=== PATIENT | female | born 1990 | race Caucasian/White ===

== ENCOUNTER 2017-08-15 14:32 | Emergency (ER) | payer SELFPAY ==
[2017-08-15 14:39] VITALS: BP 152/89
--- NOTE | 2017-08-15 15:52 | ER Document Report ---
HPI - HPI Pain Level: 2 Notes: Patient is a 27-year-old female presents ED complaining of a possible bacterial infection to the left side of her face 1-1/2 weeks. Patient states that she has not been placing any creams on her face, but has been using face wash with minimal relief. Patient has noticed crusting to the lesions without any obvious abscess or purulent discharge. She has not noticed any streaks. Patient still eating and drink without difficulties. Denies any other recent illness. Patient admits to smoking but denies IV drug use. No other concerns or complaints. Denies any headache, fever, head injury, neck pain, URI, sore throat, chest pain, palpitations, syncope, cough, shortness of breath, wheeze, dyspnea, abdominal pain, nausea/vomiting/diarrhea, urinary retention, dysuria, hematuria. + history of impetigo in the past and she believes she has another infection of impetigo. No other significant medical history. - ROS Notes: REVIEW OF SYSTEMS: CONSTITUTIONAL : Denies fever, chills, or sweats. Denies recent illness. EENT: Denies eye, ear, throat, or mouth pain or symptoms. Denies nasal or sinus congestion or discharge. Denies throat, tongue, or mouth swelling or difficulty swallowing. CARDIOVASCULAR: Denies chest pain. Denies palpitations or racing or irregular heart beat. Denies ankle edema. RESPIRATORY: Denies cough, cold, or chest congestion. Denies shortness of breath, difficulty breathing, or wheezing. GASTROINTESTINAL: Denies abdominal pain or distention. Denies nausea, vomiting , or diarrhea. GENITOURINARY: Denies difficulty urinating, painful urination, burning, frequency, blood in urine, or discharge. MUSCULOSKELETAL: Denies back or neck pain or stiffness. Denies joint pain or swelling. SKIN: see hpi NEUROLOGICAL: Denies confusion or altered mental status. Denies passing out or loss of consciousness. Denies dizziness or lightheadedness. Denies headache. Denies weakness or paralysis or loss of use of either side. Denies problems with gait or speech. Denies sensory loss, numbness, or tingling. ALL OTHER SYSTEMS REVIEWED AND NEGATIVE. Dictation was performed using [employer] voice recognition software Past Medical History - Social History Smoking Status: Current Some Day Smoker Family History: Reviewed & Not Pertinent Vertical Provider Document - CONSTITUTIONAL Agree With Documented VS: Yes Notes: PHYSICAL EXAMINATION: GENERAL: Well-appearing, well-nourished and in no acute distress. A&Ox4 HEAD: Atraumatic, normocephalic. EYES: Pupils equal round and reactive to light, extraocular movements intact, sclera anicteric, conjunctiva are normal. ENT: EAC clear b/l. TM's intact b/l without erythema, fluid, or perforation. Nares patent and without discharge. oropharynx clear without exudates. No tonsilar hypertrophy or erythema. Moist mucous membranes. No sinus tenderness. NECK: Normal range of motion, supple without lymphadenopathy. No meningismus/ rigidity. LUNGS: Breath sounds clear to auscultation bilaterally and equal. No wheezes rales or rhonchi. HEART: Regular rate and rhythm without murmurs, rubs, gallops. Musculoskeletal: FROM to passive/active. Strength 5+/5. Extremities: No cyanosis, clubbing, or edema b/l. Peripheral pulses 2+. Capillary refill less than 3 seconds. NEUROLOGICAL: Cranial nerves grossly intact. Normal speech, normal gait. Normal sensory, motor exams PSYCH: Normal mood, normal affect. SKIN: Honey crusted lesions noted to the left face/neck. No abscess, purulent discharge, or streaks. - RESPIRATORY O2 Sat by Pulse Oximetry: 98 Course - Re-evaluation Re-evalutation: 08/15/17 15:48 Patient is an afebrile, well-hydrated, 27-year-old female who presents the ED with impetigo. Vitals are stable. PE is otherwise unremarkable. Low suspicion for any sepsis, meningitis, lymphangitis, necrotizing fasciitis, or other systemic emergent condition at this time. Patient to monitor symptoms and seek medical attention with acute changes. I will send her home with Keflex and mupirocin. Conservative measures for symptoms otherwise. Recheck with your PCM in 3-5 days. You may consider consult with dermatology if needed. Return to the ED with any worsening/concerning symptoms otherwise as reviewed in discharge. Patient is in agreement. - Vital Signs Vital signs: Temp Pulse Resp BP Pulse Ox 98.7 F 89 16 152/89 H 98 08/15/17 14:36 08/15/17 14:36 08/15/17 14:36 08/15/17 14:36 08/15/17 14:36 Discharge - Discharge Clinical Impression: Impetigo Condition: Stable Disposition: HOME, SELF-CARE Instructions: Bactroban Ointment ([facility]), Impetigo ([facility]), Cephalexin ([facility]) Additional Instructions: Keep the skin clean Wash with soap and water Use Mupirocin as directed Take antibiotic as directed Recheck with PCM in 3-5 days Consider consult with Dermatology if needed Return to the ED with any worsening symptoms and/or development of fever, headache, chest pain, palpitations, syncope, shortness of breath, trouble breathing, abdominal pain, n/v/d, abscess, purulent discharge, streaks, or other worsening symptoms that are concerning to you. Prescriptions: Cephalexin Monohydrate [Keflex 500 mg Capsule] 500 mg PO TID #30 capsule Forms: Elevated Blood Pressure, Smoking Cessation Education, Return to Work Referrals: TAMERA BUCK DO [ACTIVE STAFF] - Follow up as needed
== END 2017-08-15 16:03 | disposition home or self-care (01) ==
LOC: ER 14:32
DX: L01.00 Impetigo, unspecified (principal); F17.200 Nicotine dependence, unspecified, uncomplicated
CPT/HCPCS: 99282